=== PATIENT | male | born 1965 | race Caucasian/White ===

== ENCOUNTER 2021-05-20 00:56 | Inpatient (IN) ==
[2021-05-20] MEDS ORDERED: Ondansetron ODT 4 MG TAB.RAPDIS SL PRN (03:05)
[2021-05-20] MEDS ORDERED: Naloxone 0.4 MG/ML INJ IVP PRN (03:05)
[2021-05-20] MEDS: 0.9 % Sodium Chloride 1,000 ML IVC SCH ×2 (03:54→11:16)
[2021-05-20 04:34] LABS: Basophils # 0.1 K/mcL (0.0-0.2); Basophils % 0.5 %; Eosinophils # 0.1 K/mcL (0.0-0.6); Eosinophils % 1.4 %; Hematocrit 38.4 % (37.5-50.1); Hemoglobin 13.2 g/dL (12.9-16.9); Immature Granulocytes % 0.7 % (0-4); Lymphocytes # 1.5 K/mcL (0.6-4.6); Lymphocytes % 14.4 %; Mean Corpuscular HGB Conc 34.4 g/dL (31.6-35.5); Mean Corpuscular Hemoglobin 31.6 pg (28.0-33.3); Mean Corpuscular Volume 91.9 fL (83.0-100.0); Mean Platelet Volume 11.7 fL (9.4-12.4); Monocytes % 9.4 %; Neutrophils # 7.4 K/mcL (1.6-8.9); Platelet Count 266 K/mcL (140-400); Red Blood Count 4.18 M/mcL (4.19-5.50); Red Cell Distribution Width 17.9 % (11.5-14.5); Segmented Neutrophils % 73.6 %; White Blood Count 10.1 K/mcL (4.3-11.1)
[2021-05-20 04:40] LABS: INR 1.4; Prothrombin Time 15.6 Seconds (9.4-12.1)
[2021-05-20 04:56] LABS: Albumin 3.5 g/dL (3.5-5.7); Albumin/Globulin Ratio 1.1 (1.1-2.2); Bilirubin,Direct 8.8 mg/dL (0.0-0.2); Bilirubin,Indirect 5.2 mg/dL (0.0-1.0); Globulin 3.2 g/dL (2.4-3.5); Total Protein 6.7 g/dL (6.4-8.9)
[2021-05-20 04:56] LABS: Bacteria,Urine Few per hpf (None-Few); Bilirubin,Urine Large (Negative); Blood,Urine Negative (Negative); Clarity,Urine Clear (Clear); Color,Urine Dark-Yellow (Yellow); Glucose,Urine (UA) Normal (Normal); Ketones,Urine Negative (Negative); Leukocyte Esterase,Urine Small (Negative); Mucus,Urine Few per lpf (None-Few); Nitrite,Urine Negative (Negative); Protein,Urine Trace mg/dL (Neg-Trace); Specific Gravity,Urine 1.028 (1.010-1.025); Squamous Epithelial Cell,Urine Few per hpf (None-Few); Urobilinogen,Urine Normal (Normal)
[2021-05-20 05:10] LABS: Cholesterol 301 mg/dL (< 200); Ethanol < 10 mg/dL (Less than 10); HDL Cholesterol 7 mg/dL (40-59); LDL Cholesterol,Calculated 223 mg/dL (< 100); Magnesium 1.5 mg/dL (1.6-2.6); Phosphorous 2.7 mg/dL (2.7-4.5); Thyroid Stimulating Hormone 0.812 mcIU/mL (0.340-5.600); Triglycerides 353 mg/dL (< 150)
[2021-05-20 05:14] LABS: Hepatitis B Surface Antigen Nonreactive (Nonreactive)
[2021-05-20 05:43] LABS: Hepatitis B Core IgM Nonreactive (Nonreactive); Hepatitis C Virus Antibody Nonreactive (Nonreactive)
[2021-05-20 05:45] LABS: Hepatitis A Antibody IgM Nonreactive (Nonreactive)
[2021-05-20 07:22] LABS: BUN/Creatinine Ratio 13 (6-26); Blood Urea Nitrogen 12 mg/dL (6-20); Calcium 8.9 mg/dL (8.6-10.3); Carbon Dioxide 24 mEq/L (23-29); Chloride 102 mEq/L (98-107); Glucose 114 mg/dL (70-105); Osmolality,Calculated 281 (280-300); Potassium 3.3 mEq/L (3.5-5.1); Sodium 135 mEq/L (136-145); eGFR For African Americans > 60 (> 60); eGFR For Non-African Americans > 60 (> 60)
[2021-05-20] MEDS: Piperacillin/Tazobactam 3.375 GM in 0.9 % Sodium Chloride Mini Bag 100 ML IVPB SCH ×3 (08:51→23:13)
[2021-05-20] MEDS ORDERED: *HR* FentaNYL (PF) 100 MCG/2 ML VIAL IVP ONE (08:57)
[2021-05-20] MEDS ORDERED: Potassium Chloride 20 MEQ, Lidocaine 1% 2 ML in 0.9 % Sodium Chloride 250 ML IVPB ONE (12:12)
[2021-05-20] MEDS ORDERED: Indomethacin 50 MG SUPP.RECT RC ONE (14:12)
[2021-05-20] MEDS ORDERED: Lidocaine -MPF 4% 5 ML AMPUL ONE (14:45)
[2021-05-20] MEDS ORDERED: Lidocaine -MPF 2% 5 ML VIAL ONE (14:45)
[2021-05-20] MEDS ORDERED: *HR* Propofol 200 MG/20 ML VIAL IVP ONE (14:45)
[2021-05-20] MEDS ORDERED: *HR* Succinylcholine 200 MG/10 ML VIAL IVP ONE (14:45)
[2021-05-20] MEDS ORDERED: Ondansetron 4 MG/2 ML VIAL ONE (14:45)
[2021-05-20] MEDS ORDERED: EPINEPHrine 1 MG/ML VIAL ONE (14:48)
[2021-05-20 19:46] VITALS: O2SAT 95
[2021-05-20] MEDS: Pregabalin 75 MG CAPSULE PO SCH (23:13)
[2021-05-21 05:35] LABS: Hematocrit 38.3 % (37.5-50.1); Hemoglobin 12.5 g/dL (12.9-16.9); Mean Corpuscular HGB Conc 32.6 g/dL (31.6-35.5); Mean Corpuscular Hemoglobin 31.1 pg (28.0-33.3); Mean Corpuscular Volume 95.3 fL (83.0-100.0); Mean Platelet Volume 11.6 fL (9.4-12.4); Platelet Count 276 K/mcL (140-400); Red Blood Count 4.02 M/mcL (4.19-5.50); Red Cell Distribution Width 16.5 % (11.5-14.5); White Blood Count 11.6 K/mcL (4.3-11.1)
[2021-05-21 05:56] LABS: Alanine Aminotransferase 118 Units/L (7-52); Albumin 3.1 g/dL (3.5-5.7); Albumin/Globulin Ratio 1.1 (1.1-2.2); Alkaline Phosphatase 240 Units/L (34-104); Aspartate Amino Transferase 81 Units/L (13-39); BUN/Creatinine Ratio 15 (6-26); Bilirubin,Total 9.2 mg/dL (0.3-1.0); Blood Urea Nitrogen 11 mg/dL (6-20); Calcium 8.4 mg/dL (8.6-10.3); Carbon Dioxide 26 mEq/L (23-29); Chloride 104 mEq/L (98-107); Globulin 2.9 g/dL (2.4-3.5); Glucose 131 mg/dL (70-105); Osmolality,Calculated 287 (280-300); Potassium 3.6 mEq/L (3.5-5.1); Sodium 138 mEq/L (136-145); eGFR For African Americans > 60 (> 60); eGFR For Non-African Americans > 60 (> 60)
[2021-05-21] MEDS: Pregabalin 75 MG CAPSULE PO SCH (09:06)
[2021-05-21] MEDS: Piperacillin/Tazobactam 3.375 GM in 0.9 % Sodium Chloride Mini Bag 100 ML IVPB SCH (09:06)
[2021-05-21 09:56] VITALS: BP 107/70; PULSE 58; TEMP 97.9
== END 2021-05-21 14:40 | disposition home or self-care (01) ==
LOC: 3ANU → SUATTDRO 02:40
PROVIDERS: ADMIT Student in an Organized Health Care Education/Training Program; ATTEND General Practice